=== PATIENT | female | born 1995 | race Caucasian/White ===

== ENCOUNTER 2023-10-29 13:13 | Inpatient (IN) ==
[2023-10-29 14:08] LABS: Urine Appearance Clear; Urine Bilirubin Negative (Negative); Urine Blood Negative (Negative); Urine Color Light-Yellow; Urine Glucose Negative (Negative); Urine Ketones Negative (Negative); Urine Nitrite Negative (Negative); Urine Protein Negative (Negative); Urine Specific Gravity 1.007 (1.002-1.030); Urine Urobilinogen Negative (Negative)
[2023-10-29 14:31] LABS: Urine Benzodiazepine Screen None Detected (None Detect); Urine Cannabinoids Screen None Detected (None Detect); Urine Opiates Screen None Detected (None Detect)
[2023-10-29] MEDS ORDERED: Al Hydrox/Mg Hydrox/Simet LIQ 30 ML UDC PO PRN (15:37)
[2023-10-29] MEDS ORDERED: Albuterol HFA INHALER 8 gm MDI INH PRN (15:38)
[2023-10-29] MEDS ORDERED: Ondansetron ODT 4 mg TAB 4 MG TAB PO PRN (16:00)
[2023-10-29] MEDS: Cholecalciferol (VIT D3) 1,000 unit TAB PO SCH (21:40)
[2023-10-29] MEDS: Calcium (OSCAL) 500 mg TAB PO SCH (21:40)
[2023-10-30] MEDS: Vitamin THERAPEUTIC TAB PO SCH (08:34)
[2023-10-30] MEDS: DULoxetine DR 20 mg CAP PO SCH (08:34)
[2023-10-30 08:36] LABS: HDL Cholesterol 51.1 mg/dL
[2023-10-30 12:53] VITALS: BP 111/65
== END 2023-10-30 13:00 | disposition home or self-care (01) | DRG 751 ==
LOC: ED 13:13 → EDHOLD 15:37 → BSU 17:40
PROVIDERS: ADMIT Psychiatry & Neurology Psychiatry; ATTEND Psychiatry & Neurology Psychiatry